=== PATIENT | female | born 1980 | race Caucasian/White ===

== ENCOUNTER 2020-02-02 07:14 | Day surgery (SDC) | payer BC ==
[~2020-02-02] VITALS: Ht 157.5 cm; Wt 60.3 kg
[~2020-02-02 07:14] MED LIST: BUPIVACAINE/PF 0.5% ONE; EPINEPHRINE 1 MG/ML, 1ML ONE; SERT25TA3 PO
[2020-02-02] MEDS ORDERED: LACTATED RINGERS 1,000 ML IV SCH (07:53)
[2020-02-02 07:55] VITALS: BP 105/70
[2020-02-02] MEDS ORDERED: CHLORHEXIDINE 15 ML UDC ONE (07:58)
[2020-02-02] MEDS ORDERED: CHLORHEXIDINE 15 ML UDC MM ONE (08:00)
[2020-02-02] MEDS ORDERED: FENTANYL PF 100 MCG/2ML ONE ×2 (08:15→09:50)
[2020-02-02] MEDS ORDERED: MIDAZOLAM 1 MG/ML, 2ML ONE ×2 (08:15→09:50)
[2020-02-02 08:33] LABS: HCG UR SG 1.027 (1.003-1.030)
[2020-02-02] MEDS ORDERED: CEFAZOLIN 1,000 MG ONE (08:46)
[2020-02-02] MEDS ORDERED: ONDANSETRON 2MG/ML, 2ML ONE (08:46)
[2020-02-02] MEDS ORDERED: ROCURONIUM 10 MG/ML,10ML ONE (08:46)
[2020-02-02] MEDS ORDERED: DEXAMETHASONE 4 MG/ML, 1ML ONE (08:46)
[2020-02-02] MEDS ORDERED: PROPOFOL 10 MG/ML, 20ML ONE (08:46)
[2020-02-02] MEDS ORDERED: SUCCINYLCHOLINE 20 MG/ML, 10ML ONE (08:46)
[2020-02-02] MEDS ORDERED: PROMETHAZINE 25 MG/ML, 1ML IV PRN (09:00)
[2020-02-02] MEDS ORDERED: DIAZEPAM 5 MG/ML, 2ML IV PRN ×2 (09:00)
[2020-02-02] MEDS ORDERED: METOCLOPRAMIDE 5 MG/ML, 2ML IV PRN (09:00)
[2020-02-02] MEDS ORDERED: KETOROLAC 30 MG/1 ML IV PRN (09:00)
[2020-02-02] MEDS ORDERED: hydrALAzine 20 MG/ML, 1ML IV PRN (09:00)
[2020-02-02] MEDS ORDERED: LABETALOL 5MG/ML, 20ML IV PRN (09:00)
[2020-02-02] MEDS ORDERED: HYDROmorphone 1 MG/ML, 1ML INJ IV PRN (09:00)
[2020-02-02] MEDS ORDERED: OXYcodone 5 MG/5 ML ORAL.SOL UDC PO PRN (09:00)
[2020-02-02] MEDS ORDERED: ONDANSETRON 2MG/ML, 2ML IVPush PRN (09:00)
[2020-02-02] MEDS ORDERED: ALBUTEROL SULFATE 2.5 MG/3 ML NPPB PRN (09:00)
[2020-02-02] MEDS ORDERED: MEPERIDINE/PF 25MG/0.5ML IVPush PRN (09:00)
[2020-02-02] MEDS: FENTANYL PF 100 MCG/2ML IV PRN ×2 (09:55→10:15)
[2020-02-02] MEDS ORDERED: MIDAZOLAM 1 MG/ML, 2ML IVPush PRN (10:00)
== END 2020-02-02 12:35 | disposition home or self-care (01) ==
LOC: OUT 07:14
PROVIDERS: ATTEND Podiatrist Foot & Ankle Surgery
DX: M21.611 Bunion of right foot (principal); Z11.59 Encounter for screening for other viral diseases; L60.0 Ingrowing nail; J45.909 Unspecified asthma, uncomplicated; Z79.891 Long term (current) use of opiate analgesic; Z79.899 Other long term (current) drug therapy
CPT/HCPCS: 11750; 28297; 36415; 64445; 64447; 81025; 87635; C1713; J0330; J0690; J1100; J2250; J2405; J2704; J3010; J7120; J0171